=== PATIENT | female | born 1985 | race Caucasian/White ===

== ENCOUNTER 2022-01-22 05:00 | Inpatient (IN) | payer OTHER ==
[2022-01-22] MEDS ORDERED: fentaNYL 100 MCG/2 ML SDV ITHECAL ONE (05:38)
[2022-01-22] MEDS ORDERED: fentaNYL 100 MCG/2 ML SDV ONE (05:38)
[2022-01-22] MEDS ORDERED: ePHEDrine 50 MG/ML SDV IVPUSH PRN (05:41)
[2022-01-22] MEDS ORDERED: Ondansetron 4 MG/2 ML SDV IVPUSH PRN ×2 (05:41)
[2022-01-22] MEDS ORDERED: Lactated Ringers 1,000 ML IV ONE (05:41)
[2022-01-22] MEDS ORDERED: Promethazine 25 MG/ML SDV IM PRN (05:41)
[2022-01-22] MEDS ORDERED: Sodium Chloride 0.9% 10 ML Syringe FLUSH PRN ×2 (05:41→09:18)
[2022-01-22] MEDS ORDERED: Lidocaine 1% 30 ML SDV INJECT PRN (05:41)
[2022-01-22] MEDS ORDERED: Naloxone 2 MG/2 ML Syringe IVPUSH PRN (05:41)
[2022-01-22] MEDS ORDERED: Tranexamic Acid 1,000 MG in Sodium Chloride 0.9% 100 ML IV PRN (05:41)
[2022-01-22] MEDS ORDERED: Misoprostol 400 MCG (4 X 100 MCG TAB) RECTAL PRN (05:41)
[2022-01-22] MEDS ORDERED: Carboprost Tromethamine 250 MCG/1 ML Amp IM PRN (05:41)
[2022-01-22] MEDS ORDERED: Methylergonovine 0.2 MG/1 ML Amp IM PRN (05:41)
[2022-01-22] MEDS ORDERED: Lactated Ringers 500 ML IV SCH ×2 (05:45)
[2022-01-22] MEDS ORDERED: Oxytocin/Normal Saline 30 UNIT/500 ML BAG IV SCH (05:45)
[2022-01-22] MEDS ORDERED: Lactated Ringers 1,000 ML IV SCH (05:45)
[2022-01-22] MEDS ORDERED: Benzocaine/Menthol 20%-0.5% Spray 78 GM Cannister TOP PRN (09:18)
[2022-01-22] MEDS ORDERED: Oxytocin 10 Units/1 ML SDV IM PRN (09:18)
[2022-01-22] MEDS ORDERED: Simethicone 80 MG Tab.Chew PO PRN (09:18)
[2022-01-22] MEDS: Ibuprofen 800 MG Tab PO PRN ×2 (13:07→21:10)
[2022-01-22] MEDS: Acetaminophen 325 MG Tab PO PRN (17:32)
[2022-01-22] MEDS: Docusate Sodium 100 MG Cap PO PRN (21:10)
[2022-01-23] MEDS: Acetaminophen 325 MG Tab PO PRN ×4 (01:49→16:54)
[2022-01-23] MEDS: Ibuprofen 800 MG Tab PO PRN ×2 (06:03→16:55)
[2022-01-23] MEDS ORDERED: Ferrous Sulfate 325 MG Tab PO SCH (08:00)
[2022-01-23] MEDS ORDERED: Prenatal Multivitamin with Calcium/Folic Acid/Iron Tab PO SCH (09:00)
[2022-01-23] MEDS: Docusate Sodium 100 MG Cap PO PRN (09:20)
[2022-01-23 13:58] VITALS: BP 130/72; PULSE 86
== END 2022-01-23 20:10 | disposition home or self-care (01) | DRG 807 ==
LOC: DL.OBCHECK 05:00 → DL.OB 05:24 → OBSVTOIN 09:14
PROVIDERS: ADMIT Family Medicine; ATTEND Family Medicine
PROC: 10E0XZZ Delivery of Products of Conception, External Approach (ICD-10-PCS; principal; 2022-01-22)
PROC: 0HQ9XZZ Repair Perineum Skin, External Approach (ICD-10-PCS; 2022-01-22)
PROC: 3E0R3BZ Introduction of Anesthetic Agent into Spinal Canal, Percutaneous Approach (ICD-10-PCS; 2022-01-22)
DX: O99.214 Obesity complicating childbirth (principal); Z37.0 Single live birth; Z3A.38 38 weeks gestation of pregnancy; O70.0 First degree perineal laceration during delivery; Z20.822 Contact with and (suspected) exposure to COVID-19
CPT/HCPCS: 36415; 59409; 81003; 82565; 82570; 83615; 84156; 84450; 84460; 84520; 84550; 85027; A9270-GY; J2590; J3010; J7120; U0002